=== PATIENT | male | born 1960 | race Caucasian/White ===

== ENCOUNTER 2025-05-09 08:41 | Outpatient (CLI) | payer BC | END 2025-05-09 08:42 | disposition home or self-care (01) | LOC: CSHWCC 08:41 | PROVIDERS: ATTEND Nurse Practitioner Family | DX: I87.331 Chronic venous hypertension (idiopathic) with ulcer and inflammation of right lower extremity (principal); L97.812 Non-pressure chronic ulcer of other part of right lower leg with fat layer exposed | CPT/HCPCS: 11042; 99213; G0463 ==

== ENCOUNTER 2025-05-16 09:15 | Outpatient (CLI) | payer BC | END 2025-05-16 09:16 | disposition home or self-care (01) | LOC: CSHWCC 09:15 | PROVIDERS: ATTEND Nurse Practitioner Family | DX: I87.331 Chronic venous hypertension (idiopathic) with ulcer and inflammation of right lower extremity (principal); L97.812 Non-pressure chronic ulcer of other part of right lower leg with fat layer exposed ==